=== PATIENT | female | born 1955 | race Caucasian/White ===

== ENCOUNTER → 2024-04-13 | Outpatient (CLI) | payer OTHER, SELFPAY ==
--- NOTE | 2024-04-13 12:06 | XR_ITS ---
Examination: Lumbar spine, 5 views Technique: Lumbar spine AP, lateral, coned lateral lower lumbar spine, bilateral obliques 5 views Exam date and time: April 13, 2024 1300 hours Comparison October 21, 2019 INDICATIONS: Low back pain years. FINDINGS: Lumbar levoscoliosis 20 degrees Significant osteopenia Diffuse advanced facet arthropathy No lumbar fracture Diffuse lumbar degenerative disc disease, advanced L2-L3, L5-S1 No lumbar fracture IMPRESSION: Lumbar levoscoliosis 20 degrees Diffuse lumbar degenerative disc disease, advanced L2-L3, L5-S1
--- NOTE | 2024-04-13 12:25 | XR_ITS ---
Examination: Thoracic spine 3 views Technique one AP lateral coned lateral upper dorsal spine 3 views Exam date and time: April 13, 2024 at 1256 hours INDICATIONS: Back pain years FINDINGS: Severe osteopenia Thoracic dextroscoliosis 18 degrees Please see the cervical spine examination showing abnormal anterolisthesis C7 on T1 No acute thoracic fracture IMPRESSION: Abnormal anterolisthesis C7 on T1 best depicted on the cervical spine examination today
--- NOTE | 2024-04-13 12:25 | XR_ITS ---
EXAMINATION: Cervical spine, 5 views Technique: Cervical spine AP, AP odontoid, lateral, bilateral obliques, 5 views Exam date and time: April 13, 2024 1244 hours Comparison October 21, 2019 INDICATIONS: Neck pain years FINDINGS: Cervical fusion C4-C7 Markedly abnormal anterolisthesis C7 on T1, 9 mm No definite cervical fracture Also minimal grade 1 anterolisthesis C3 on C2 IMPRESSION: Abnormal study Markedly abnormal anterolisthesis C7 on T1, at least [address] scan cervical spine follow-up, consider MRI cervical spine follow-up to exclude cervical cord compression at the C7-T1 level
[2024-04-13 13:41] LABS: Basophils % (Auto) 0 % (0-2.5); Eosinophils # (Auto) 0.1 Thou/mm3 (0.0-0.5); Eosinophils % (Auto) 2 % (0-10); Hematocrit 39.1 % (36.0-46.0); Hemoglobin 12.8 g/dL (12.0-16.0); Immature Granulocytes % (Auto) 0 % (0-0); Immature Granulocytes Auto 0.01 Thou/mm3 (0.00-0.00); Lymphocytes # (Auto) 1.2 Thou/mm3 (1.0-4.8); Lymphocytes % (Auto) 25 % (10-50); Mean Corpuscular HGB Conc 32.7 g/dl (31.0-37.0); Mean Corpuscular Hemoglobin 29.6 pg (25.0-35.0); Mean Corpuscular Volume 90 fL (80-100); Monocytes # (Auto) 0.4 Thou/mm3 (0.0-0.8); Monocytes % (Auto) 8 % (0-12); Neutrophils # (Auto) 3.1 Thou/mm3 (1.8-7.7); Neutrophils % (Auto) 65 % (37-80); Nucleated Red Blood Cell % 0 /100 WBC (0); Platelet Count 211 Thou/mm3 (140-440); RDW Standard Deviation 41.5 fL (36.4-46.3); Red Blood Count 4.33 Miln/mm3 (4.00-5.20); White Blood Count 4.8 Thou/mm3 (3.6-11.0)
[2024-04-13 14:11] LABS: Alanine Aminotransferase 35 U/L (10-49); Albumin, Serum 4.6 gm/dL (3.4-4.8); Albumin/Globulin Ratio 2.2 (1.2-2.2); Alkaline Phosphatase 62 U/L (46-116); Anion Gap 7 (7-16); Aspartate Amino Transferase 26 U/L (0-34); BUN/Creatinine Ratio 21 Ratio (12-20); Bilirubin,Total 0.6 mg/dL (0.3-1.2); Blood Urea Nitrogen 15 mg/dL (9-23); Calcium 9.7 mg/dL (8.3-10.6); Calcium (Corrected) 9.7 mg/dL (8.5-10.1); Carbon Dioxide 28.6 mMol/L (20.0-31.0); Cardiac Risk Estimate 2.1 RATIO (3.7-5.6); Chloride 105 mMol/L (98-107); Cholesterol 217 mg/dL (132-200); Creatinine (Component) 0.7 mg/dL (0.6-1.3); Free T4 (Free Thyroxine) 1.14 ng/dL (0.89-1.76); Globulin 2.1 gm/dL (2.3-3.5); Glucose 94 mg/dL (74-106); HDL Cholesterol 104 mg/dL (40-60); LDL Cholesterol,Calculated 102 mg/dL (0-130); Osmolality,Calculated 282 (275-295); Potassium 3.8 mMol/L (3.4-5.1); Sodium 141 mMol/L (136-145); Total Protein 6.7 gm/dL (5.7-8.2); Triglycerides 53 mg/dL (30-150); eGFR > 60 See Note
[2024-04-13 14:12] LABS: Glucose Estimated Average 91 mg/dL (80-131); Hemoglobin A1C 4.8 % Hgb (4.8-6.0)
== END | disposition home or self-care (01) ==
LOC: CDIM 12:03 → COPL 12:21
PROVIDERS: PCP Internal Medicine; Referring Provider Internal Medicine; Visit Provider Radiology Diagnostic Radiology
DX: R93.89 Abnormal findings on diagnostic imaging of other specified body structures (principal); M41.86 Other forms of scoliosis, lumbar region; M51.379 Other intervertebral disc degeneration, lumbosacral region without mention of lumbar back pain or lower extremity pain; Z00.00 Encounter for general adult medical examination without abnormal findings
CPT/HCPCS: 36415; 72050; 72072; 72110; 80053; 80061; 83036; 84439; 84443; 85025

== ENCOUNTER → 2024-04-19 | Outpatient (CLI) | payer OTHER, SELFPAY ==
--- NOTE | 2024-04-19 12:20 | XR_ITS ---
Examination: Bone densitometry Date and time of exam:April 19, 1999 2558 hours INDICATIONS: Hysterectomy age 22, family history, mother, hip fracture secondary to osteoporosis, personal history osteoporosis Technique: Lumbar spine and hip total bone mineralization values of an calculated. Peak reference and age match control results have been displayed. Findings: Lumbar spine total bone mineralization is0.998 gm/cm2. This is 0.4 standard deviations below peak reference. This is 1.7 standard deviations above age-matched controls. Hip total bone mineralization is 0.766 gm/cm2 This is 1.4 standard deviations below peak reference. This is 0.1 standard deviations above age-matched controls Impression: There is normal mineralization based on lumbar spine measurements. There is osteopenia based on hip measurements Lumbar mineralization is increase 11.5% compared with September 15, 2014 Hip mineralization is decreased 5.7% compared with September 15, 2014
== END | disposition home or self-care (01) ==
LOC: CDIM 11:40
PROVIDERS: Referring Provider Internal Medicine; Visit Provider Internal Medicine
DX: M85.88 Other specified disorders of bone density and structure, other site (principal)
CPT/HCPCS: 77080

== ENCOUNTER 2024-05-12 19:21 | Emergency (ER) | payer OTHER, SELFPAY ==
[2024-05-12 19:21] VITALS: BMI 21.4
--- NOTE | 2024-05-12 19:41 | XR_ITS ---
Examination: Fingers, right hand second digit 3 views Technique: AP, oblique, lateral views right hand second digit 3 views. Exam date and time: May 12, 20242003 hrs. Indications: Injury to the second digit today, second digit pain. Findings: Moderate osteopenia Moderate osteoarthritis distal interphalangeal joint No acute fracture No dislocation Impression: No acute fracture
[2024-05-12 20:18] VITALS: BP 140/85; PULSE 85; RESP 18; TEMP 36.9; O2SAT 99
--- NOTE | 2024-05-12 21:47 | PD.EDWOUND ---
ED Wound/Laceration-RME/HPI General Chief Complaint: Wound/Laceration Stated Complaint: SMASHED RIGHT FINGER IN CAR DOOR Time Seen by Provider: 05/12/24 21:44 Arrival date/time: 05/12/24 19:21 69F with no significant PMH presents to ED with R index finger pain/lac after it was accidentally caught in car door. Patient has had a tetanus shot in the past 5 years. Limitations: no limitations Related Data Home Medications ?Medication ?Instructions ?Recorded ?Confirmed gabapentin 100 mg capsule 100 mg PO HS #0 caps 09/18/16 12/02/20 meloxicam 7.5 mg tablet 7.5 mg PO HS #0 tabs 09/18/16 12/02/20 aspirin 81 mg tablet,delayed 1 tab PO DAILY ##0 09/20/16 12/02/20 release (Bjorn Low Dose Aspirin) cholecalciferol (vitamin D3) 100 5,000 unit PO QDAY 09/28/17 12/02/20 mcg (4,000 unit) capsule (Vitamin D3) ascorbic acid (vitamin C) 1,000 mg 1,000 mg PO QDAY 12/02/20 12/02/20 chewable tablet magnesium 250 mg tablet 250 mg PO QDAY 12/02/20 12/02/20 Allergies Allergy/AdvReac Type Severity Reaction Status Date / Time tramadol Allergy Severe VOMITING Verified 08/27/22 16:53 propoxyphene Allergy Intermediate VOMITING Verified 08/27/22 16:53 carisoprodol Allergy Mild NAUSA AND Verified 08/27/22 16:53 VOMITING codeine Allergy Mild VOMITING Verified 08/27/22 16:53 morphine Allergy Mild VOMITING Verified 08/27/22 16:53 promethazine (From Phenergan) Allergy Mild Vomiting Verified 08/27/22 16:53 Review of Systems Review of Systems Systems Reviewed: All systems reviewed, normal except as documented Constitutional Constitutional: Reports system reviewed and no additional complaints, except as documented, Denies fever(s) and Denies headache(s) ENT Ears, Nose, Mouth, and Throat: Denies disequilibrium and Denies headache(s) Cardiovascular Cardiovascular: Reports system reviewed and no additional complaints, except as documented, Denies chest pain and Denies dyspnea Respiratory Respiratory: Reports system reviewed and no additional complaints, except as documented, Denies cough and Denies dyspnea Gastrointestinal Gastrointestinal: Reports system reviewed and no additional complaints, except as documented, Denies abdominal pain, Denies nausea and Denies vomiting Musculoskeletal Musculoskeletal: Reports as per HPI and Reports arthralgias Integumentary/Breasts Skin/Breast: Reports as per HPI and Reports skin pain Neurologic Neurologic: Reports system reviewed and no additional complaints, except as documented, Denies confusion, Denies disequilibrium and Denies headache(s) Psychiatric Psychiatric: Denies confusion Past Medical History Past Medical History NEUROLOGIC: Positive Cerebrovascular Accident, Seizures, Epilepsy, Migraine and Head Trauma; Negative Neurological Disorders CARDIAC: Positive Cardiac Disorders; Negative Congestive Heart Failure RESPIRATORY: Positive Pneumonia and Sleep Apnea; Negative Chronic Obstructive Pulmonary Disease (COPD) GASTROINTESTINAL: Positive Gastrointestinal Disorders, Gall Bladder Disease and Irritable Bowel GENITOURINARY: Positive Genitourinary Disorders and Kidney Stones; Negative Renal Disease REPRODUCTIVE: Positive Previous Pregnancies MUSCULOSKELETAL: Positive Musculoskeletal Disorders, Arthritis and Degenerative Disk Disease ENT: Positive Head Trauma ENDOCRINE: Negative Endocrine Disorders, Diabetes Mellitus Type 1 or Diabetes Mellitus Type 2 HEMATOLOGIC: Positive Anemia; Negative Blood Disorders OTHER HISTORY: Positive Hospitalization, Autoimmune Disease, Shingles, Blood Transfusions, Anesthesia Reactions, Chicken Pox, Measles and Mumps; Negative Blood Transfusion Reaction, Chemotherapy, Radiation Therapy or MRSA Family History FAMILY HISTORY: Positive Family Respiratory Disorders, Family Gastrointestinal Problems and Family Cancer; Negative Family Psychiatric Problems, Family Cardiac Disorders, Family Surgery or Family Anesthesia Reaction Surgical History SURGICAL: Positive Cardiac Catheterization, Angiogram, Joint Replacement, Hysterectomy and Tubal Ligation Social History SMOKING STATUS: Never smoker ED Exam General Limitations: Present no limitations General appearance: Present alert and in no apparent distress Head Head exam: Present atraumatic Eye Eye exam: Present normal appearance, PERRL and EOMI ENT ENT exam: Present normal exam, normal oropharynx and mucous membranes moist Neck Neck exam: Present normal inspection, full ROM and trachea midline Chest Chest inspection: Present normal inspection and symmetric chest wall rise Respiratory Respiratory exam: Present normal lung sounds bilaterally Cardiovascular Cardiovascular exam: Present regular rate, normal rhythm and normal heart sounds Abdominal Exam Abdominal exam: Present soft and normal bowel sounds Extremities Exam Extremities exam: Present full ROM Expanded Upper Extremity Exam Hand exam: Present full ROM, tenderness, laceration (0.5 cm R index finger) and subungual hematoma Back Exam Back exam: Present normal inspection and full ROM Neurological Exam Neurological exam: Present alert, oriented X3 and CN II-XII intact Psychiatric Psychiatric exam: Present normal affect and normal mood Skin Skin exam: Present warm, dry, intact and normal color Course Quality Measures none Orders Category Date Time Status Set Up Suture Tray STAT Care 05/12/24 21:50 Completed Wound Care NOW Care 05/12/24 20:56 Completed XR finger RT min 2V Stat Exams 05/12/24 19:41 Completed Vital Signs Vital signs: Vital Signs Temperature 98.5 F 05/12/24 20:18 Pulse Rate 85 05/12/24 20:18 Respiratory Rate 18 05/12/24 20:18 Blood Pressure 140/85 H 05/12/24 20:18 Pulse Oximetry (%) 99 05/12/24 20:18 Oxygen Delivery Method Room Air 05/12/24 20:18 O2 at 99% on RA and WNLs Wound / Laceration MDM Narrative MDM Narrative:: 69F with no significant PMH presents to ED with R index finger pain/lac after it was accidentally caught in car door. Patient has had a tetanus shot in the past 5 years. Physical exam reveals 0.5 cm lac on tip of R index finger with mild subungual hematoma. There is also tenderness, but normal ROM. Patient is afebrile, calm, and alert. XR no fx. Wound cleaned/irrigated and closed with 3 stitches. Nail trephination was also done. Procedures were done by resident Dr. Granger with this provider's assistance. Given counsellors to have stitches removed in about 10-14 days. Patient data External records reviewed:: [facility] previous records Clinical information provided by:: patient Social determinants that could affect healthcare access:: none Patient has the following chronic illnesses:: none How is presenting disease/condition affected by chronic disease/condition?: no chronic disease Evaluation data The following diagnostics were reviewed and interpreted by me:: radiology exam(s) Lab and/or radiology exams considered but not ordered:: ordered Interpretation Summary: above Medications / Prescriptions Medications or Prescriptions considered but not ordered:: not ordered Medication administrations:: n/a Consultations Consultation(s) initiated? (list below): No Diagnosis Wound Differential Diagnosis: laceration, abrasion, avulsion of skin and other (laceration and subungual hematoma) Most likely diagnosis given after review of the tests above:: laceration and contusion of finger Admission Indicated Admission indicated?: not indicated Admission Request Was there a request for admission?: No Disposition Plan Disposition Plan: Discharge Discharge Attestation Discharge Attestation: The patient and all family members were given an opportunity to ask questions and understood the discharge instructions. Discharge instructions specifically effects, indications for sooner follow up or return to the emergency department, and the expected course of current diagnosis. Patient condition: Stable Discharge Plan Plan Patient Disposition: HOME (Self Care) Disposition Comment: Stable Prescriptions/Referrals Prescriptions/Med Rec: No Action meloxicam 7.5 MG tablet 7.5 mg PO HS Qty: 0 gabapentin 100 MG capsule 100 mg PO HS Qty: 0 aspirin [Bjorn Low Dose Aspirin] 81 mg Tablet,Delayed Release (Dr/Ec) 1 tab PO DAILY Qty: 0 Vitamin D3 4,000 unit Capsule 5,000 unit PO QDAY magnesium 250 mg Tablet 250 mg PO QDAY Vitamin C 1,000 mg Tablet,Chewable 1,000 mg PO QDAY Referrals: Laura Modi MD [Primary Care Provider] - In 1 week Problem List Clinical Impression: Laceration, Contusion of finger Patient/Caregiver Discharge Instructions Education Materials: ED Finger Contusion Additional Instructions: Please follow-up with PCP within 24-48 hours and return immediately if symptoms worsen. If problem persists, recommend outpatient PT and/or MRI follow-up. In the meantime, rest, use ice/heat, and/or compression. Keep area clean and dry. Have stitches removed in about 10-14 days. Print Language: Bolivian Stand Alone Forms: Patient Portal Info Letter RUDDY/ALONZO Supervising Physician RUDDY/ALONZO Supervising Physician: Dr. Steven
--- NOTE | 2024-05-12 22:47 | PD.EDWOUND ---
ED Wound/Laceration-RME/HPI General Chief Complaint: Wound/Laceration Stated Complaint: SMASHED RIGHT FINGER IN CAR DOOR Time Seen by Provider: 05/12/24 21:44 Arrival date/time: 05/12/24 19:21 Limitations: no limitations RME / HPI RME / HPI narrative: 69-year-old female presented for wound laceration to the right index finger below the nail bed and blood filled fingernail. Sutures and nail trepination done under supervision of RUDDY Casey (Antolin Pagan). Related Data Home Medications ?Medication ?Instructions ?Recorded ?Confirmed gabapentin 100 mg capsule 100 mg PO HS #0 caps 09/18/16 12/02/20 meloxicam 7.5 mg tablet 7.5 mg PO HS #0 tabs 09/18/16 12/02/20 aspirin 81 mg tablet,delayed 1 tab PO DAILY ##0 09/20/16 12/02/20 release (Bjorn Low Dose Aspirin) cholecalciferol (vitamin D3) 100 5,000 unit PO QDAY 09/28/17 12/02/20 mcg (4,000 unit) capsule (Vitamin D3) ascorbic acid (vitamin C) 1,000 mg 1,000 mg PO QDAY 12/02/20 12/02/20 chewable tablet magnesium 250 mg tablet 250 mg PO QDAY 12/02/20 12/02/20 Allergies Allergy/AdvReac Type Severity Reaction Status Date / Time tramadol Allergy Severe VOMITING Verified 08/27/22 16:53 propoxyphene Allergy Intermediate VOMITING Verified 08/27/22 16:53 carisoprodol Allergy Mild NAUSA AND Verified 08/27/22 16:53 VOMITING codeine Allergy Mild VOMITING Verified 08/27/22 16:53 morphine Allergy Mild VOMITING Verified 08/27/22 16:53 promethazine (From Phenergan) Allergy Mild Vomiting Verified 08/27/22 16:53 ED Exam General Limitations: Present no limitations General appearance: Present alert and in no apparent distress Course Quality Measures none Orders Category Date Time Status Set Up Suture Tray STAT Care 05/12/24 21:50 Completed Wound Care NOW Care 05/12/24 20:56 Completed XR finger RT min 2V Stat Exams 05/12/24 19:41 Completed Vital Signs Vital signs: Vital Signs Temperature 98.5 F 05/12/24 20:18 Pulse Rate 85 05/12/24 20:18 Respiratory Rate 18 05/12/24 20:18 Blood Pressure 140/85 H 05/12/24 20:18 Pulse Oximetry (%) 99 05/12/24 20:18 Oxygen Delivery Method Room Air 05/12/24 20:18 Procedures -ED Laceration Laceration 1: Site: hand (1 cm laceration to the right index finger below the nail bed) Side (If applicable): right Size (cm): 1 Description: linear Depth: simple, single layer Local Anesthetic: lidocaine 1% Amount of anesthesia used (mL): 5 Pre-repair: irrigated extensively Skin layer closed with: nylon Size (cm): 5-0 Number of sutures: 3 Technique: simple, interrupted Nail Trephination Time out: Yes Location (finger): right and index Sterile prep: chlorhexidine Method of drainage: needle Procedure successful: Yes Patient tolerated procedure: well and no complications Wound / Laceration Patient data External records reviewed:: None Clinical information provided by:: patient Social determinants that could affect healthcare access:: none Patient has the following chronic illnesses:: As above How is presenting disease/condition affected by chronic disease/condition?: uneffected by Evaluation data The following diagnostics were reviewed and interpreted by me:: other (specify) Lab and/or radiology exams considered but not ordered:: . Interpretation Summary: . Medications / Prescriptions Medications or Prescriptions considered but not ordered:: . Medication administrations:: . Consultations Consultation(s) initiated? (list below): No Diagnosis Wound Differential Diagnosis: laceration Most likely diagnosis given after review of the tests above:: laceration of finger Admission Indicated Admission indicated?: not indicated Admission Request Was there a request for admission?: No Disposition Plan Disposition Plan: Discharge Discharge Attestation Discharge Attestation: The patient and all family members were given an opportunity to ask questions and understood the discharge instructions. Discharge instructions specifically effects, indications for sooner follow up or return to the emergency department, and the expected course of current diagnosis. Patient condition: Stable Discharge Plan Plan Patient Disposition: HOME (Self Care) Disposition Comment: Stable Prescriptions/Referrals Prescriptions/Med Rec: No Action meloxicam 7.5 MG tablet 7.5 mg PO HS Qty: 0 gabapentin 100 MG capsule 100 mg PO HS Qty: 0 aspirin [Bjorn Low Dose Aspirin] 81 mg Tablet,Delayed Release (Dr/Ec) 1 tab PO DAILY Qty: 0 Vitamin D3 4,000 unit Capsule 5,000 unit PO QDAY magnesium 250 mg Tablet 250 mg PO QDAY Vitamin C 1,000 mg Tablet,Chewable 1,000 mg PO QDAY Referrals: Laura Modi MD [Primary Care Provider] - In 1 week Problem List Clinical Impression: Laceration, Contusion of finger Patient/Caregiver Discharge Instructions Education Materials: ED Finger Contusion Additional Instructions: Please follow-up with PCP within 24-48 hours and return immediately if symptoms worsen. If problem persists, recommend outpatient PT and/or MRI follow-up. In the meantime, rest, use ice/heat, and/or compression. Keep area clean and dry. Have stitches removed in about 10-14 days. Print Language: Armenian Stand Alone Forms: Patient Portal Info Letter RUDDY/ALONZO Supervising Physician RUDDY/ALONZO Supervising Physician: Dr. Steven
== END 2024-05-12 23:10 | disposition home or self-care (01) ==
PROVIDERS: Emergency Provider Emergency Medicine; PCP Internal Medicine
DX: S61.210A Laceration without foreign body of right index finger without damage to nail, initial encounter (principal); W23.0XXA Caught, crushed, jammed, or pinched between moving objects, initial encounter
CPT/HCPCS: 12001; 73140; 99283

== ENCOUNTER → 2025-01-24 | Outpatient (CLI) | payer OTHER, SELFPAY ==
[2025-01-24 11:29] LABS: Basophils # (Auto) 0.0 Thou/mm3 (0.0-0.2); Basophils % (Auto) 1 % (0-2.5); Eosinophils # (Auto) 0.1 Thou/mm3 (0.0-0.5); Eosinophils % (Auto) 1 % (0-10); Hematocrit 37.7 % (36.0-46.0); Hemoglobin 12.2 g/dL (12.0-16.0); Immature Granulocytes Auto 0.01 Thou/mm3 (0.00-0.00); Lymphocytes # (Auto) 1.3 Thou/mm3 (1.0-4.8); Lymphocytes % (Auto) 27 % (10-50); Mean Corpuscular HGB Conc 32.4 g/dl (31.0-37.0); Mean Corpuscular Hemoglobin 29.9 pg (25.0-35.0); Mean Corpuscular Volume 92 fL (80-100); Monocytes # (Auto) 0.3 Thou/mm3 (0.0-0.8); Monocytes % (Auto) 7 % (0-12); Neutrophils # (Auto) 3.1 Thou/mm3 (1.8-7.7); Neutrophils % (Auto) 64 % (37-80); Nucleated Red Blood Cell # 0.00 Thou/mm3 (0.00-0.00); Nucleated Red Blood Cell % 0 /100 WBC (0); Platelet Count 219 Thou/mm3 (140-440); RDW Standard Deviation 43.0 fL (36.4-46.3); Red Blood Count 4.08 Miln/mm3 (4.00-5.20); White Blood Count 4.8 Thou/mm3 (3.6-11.0)
[2025-01-24 11:53] LABS: Alanine Aminotransferase 25 U/L (10-49); Albumin, Serum 4.4 gm/dL (3.4-4.8); Albumin/Globulin Ratio 2.6 (1.2-2.2); Alkaline Phosphatase 54 U/L (46-116); Anion Gap 7 (7-16); Aspartate Amino Transferase 29 U/L (0-34); BUN/Creatinine Ratio 11 Ratio (12-20); Bilirubin,Total 0.5 mg/dL (0.3-1.2); Blood Urea Nitrogen 8 mg/dL (9-23); Calcium 9.0 mg/dL (8.3-10.6); Calcium (Corrected) 9.0 mg/dL (8.5-10.1); Carbon Dioxide 28.6 mMol/L (20.0-31.0); Cardiac Risk Estimate 2.2 RATIO (3.7-5.6); Chloride 108 mMol/L (98-107); Cholesterol 190 mg/dL (132-200); Creatinine (Component) 0.7 mg/dL (0.6-1.3); Globulin 1.7 gm/dL (2.3-3.5); Glucose 84 mg/dL (74-106); HDL Cholesterol 86 mg/dL (40-60); LDL Cholesterol,Calculated 88 mg/dL (0-130); Osmolality,Calculated 284 (275-295); Potassium 4.1 mMol/L (3.4-5.1); Sodium 144 mMol/L (136-145); Total Protein 6.1 gm/dL (5.7-8.2); Triglycerides 80 mg/dL (30-150); eGFR > 60 See Note
== END | disposition home or self-care (01) ==
PROVIDERS: PCP Internal Medicine; Referring Provider Internal Medicine; Visit Provider Internal Medicine
DX: Z00.00 Encounter for general adult medical examination without abnormal findings (principal)
CPT/HCPCS: 36415; 80053; 80061; 85025